=== PATIENT | male | born 1965 | race Caucasian/White ===

== ENCOUNTER 2018-09-26 17:55 | Emergency (ER) | payer OTHER ==
[2018-09-26] MEDS ORDERED: ASPIRIN 81 MG TABLET, CHEWABLE PO ONE (18:32)
--- NOTE | 2018-09-26 18:35 | ER Document Report ---
ED Medical Screen (RME) - General Chief Complaint: Chest Pain Stated Complaint: BACK AND CHEST PAIN/DIARRHEA Time Seen by Provider: 09/26/18 18:28 Mode of Arrival: Ambulatory Information source: Patient Notes: 53-year-old male presented to ED for complaint of left chest and back pain. He states he has been coughing since Saturday. He states he has a history of high cholesterol and is supposed to be taking prediabetic medicine but is not taking them. He does smoke a pack a day. He states his mother is in the hospital on a ventilator with a history of C. difficile and MRSA. He states he just got his mother in the hospital now is come in to get examined himself. Patient is alert and oriented respirations regular and unlabored speaking in full sentences. Patient states he has diarrhea has had 3 or 4 stools today and his stools smell exactly like his mother stools. He states he has not been on any antibiotics recently. I have greeted and performed a rapid initial assessment of this patient. A comprehensive ED assessment and evaluation of the patient, analysis of test results and completion of medical decision making process will be conducted by an additional ED providers. Dictation of this chart was performed using voice recognition software; therefore, there may be some unintended grammatical errors. TRAVEL OUTSIDE OF THE [place] IN LAST 30 DAYS: No - Related Data Allergies/Adverse Reactions: Penicillins Allergy (Verified 09/26/18 17:56) Past Medical History - Social History Chew tobacco use (# tins/day): No Frequency of alcohol use: Occasional Drug Abuse: None - Past Medical History Cardiac Medical History: Reports: Hx Hypercholesterolemia Pulmonary Medical History: Denies: Hx Tuberculosis Endocrine Medical History: Reports: Hx Diabetes Mellitus Type 2 Renal/ Medical History: Denies: Hx Peritoneal Dialysis Psychiatric Medical History: Reports: Hx Anxiety, Hx Depression Past Surgical History: Reports: Hx Herniorrhaphy, Hx Inguinal Hernia - left, Hx Tonsillectomy. Denies: Hx Pacemaker - Immunizations Immunizations up to date: No Hx Diphtheria, Pertussis, Tetanus Vaccination: No Physical Exam - Vital signs Vitals: Temp Pulse Resp BP Pulse Ox 98.2 F 73 16 135/76 H 97 09/26/18 18:00 09/26/18 18:00 09/26/18 18:00 09/26/18 18:00 09/26/18 18:00 Course - Vital Signs Vital signs: Temp Pulse Resp BP Pulse Ox 98.2 F 73 16 135/76 H 97 09/26/18 18:00 09/26/18 18:00 09/26/18 18:00 09/26/18 18:00 09/26/18 18:00
[2018-09-26 18:48] LABS: ABSOLUTE BASOPHILS # (AUTO) 0.1 10^3/uL (0.0-0.2); ABSOLUTE EOSINOPHILS # (AUTO) 0.2 10^3/uL (0.0-0.6); ABSOLUTE LYMPHOCYTES (AUTO) 2.3 10^3/uL (0.5-4.7); ABSOLUTE MONOCYTES (AUTO) 0.6 10^3/uL (0.1-1.4); ABSOLUTE NEUT (AUTO) 4.5 10^3/uL (1.7-8.2); BASOPHILS % (AUTO) 0.7 % (0-2); EOSINOPHILS % (AUTO) 2.9 % (0-6); HEMATOCRIT 44.5 % (37.9-51.0); LYMPHOCYTES % (AUTO) 30.1 % (13-45); MEAN CORPUSCULAR HEMOGLOBIN 27.8 pg (27.0-33.4); MEAN CORPUSCULAR HGB CONC 33.8 g/dL (32.0-36.0); MEAN CORPUSCULAR VOLUME 82 fl (80-97); MONOCYTES % (AUTO) 7.4 % (3-13); PLATELET COUNT 252 10^3/uL (150-450); RED BLOOD COUNT 5.41 10^6/uL (4.35-5.55); RED CELL DISTRIBUTION WIDTH 12.6 % (11.5-14.0); SEGMENTED NEUTROPHILS % (AUTO) 58.9 % (42-78); TOTAL CELLS COUNTED % (AUTO) 100 %; WHITE BLOOD COUNT 7.7 10^3/uL (4.0-10.5)
--- NOTE | 2018-09-26 18:53 | RADIOLOGY REPORT (SQ) ---
EXAM DESCRIPTION: CHEST 2 VIEWS COMPLETED DATE/TIME: 09/26/2018 6:40 pm REASON FOR STUDY: CHEST PAIN WORSE LEFT AND BETWEEN SHOULDER BLADES COMPARISON: 06/16/2015 EXAM PARAMETERS: NUMBER OF VIEWS: two views TECHNIQUE: Digital Frontal and Lateral radiographic views of the chest acquired. RADIATION DOSE: NA LIMITATIONS: none FINDINGS: LUNGS AND PLEURA: No opacities, masses or pneumothorax. No pleural effusion. MEDIASTINUM AND HILAR STRUCTURES: No masses or contour abnormalities. HEART AND VASCULAR STRUCTURES: Heart normal size. No evidence for failure. BONES: No acute findings. HARDWARE: None in the chest. OTHER: No other significant finding. IMPRESSION: NO ACUTE RADIOGRAPHIC FINDING IN THE CHEST. TECHNICAL DOCUMENTATION: JOB ID: [id number] [employer]- All Rights Reserved Reading location - IP/workstation name: [email or web address]
[2018-09-26 19:07] LABS: ALANINE AMINOTRANSFERASE 26 U/L (21-72); ALBUMIN 4.1 g/dL (3.5-5.0); ALKALINE PHOSPHATASE 46 U/L (38-126); ANION GAP 10 (5-19); ASPARTATE AMINO TRANSFERASE 17 U/L (17-59); BILIRUBIN,DIRECT 0.3 mg/dL (0.0-0.4); BILIRUBIN,TOTAL 0.5 mg/dL (0.2-1.3); BLOOD UREA NITROGEN 13 mg/dL (7-20); CALCIUM 9.8 mg/dL (8.4-10.2); CARBON DIOXIDE 27 mmol/L (22-30); CHLORIDE 101 mmol/L (98-107); GLUCOSE 207 mg/dL (75-110); LIPASE 50.6 U/L (23-300); POTASSIUM 4.1 mmol/L (3.6-5.0); SODIUM 138.1 mmol/L (137-145); TOTAL PROTEIN 6.8 g/dL (6.3-8.2)
[2018-09-26 19:19] LABS: CREATINE KINASE MB 0.87 ng/mL (<4.55); TROPONIN I < 0.012 ng/mL
--- NOTE | 2018-09-26 20:10 | ER Document Report ---
ED General - General Chief Complaint: Chest Pain Stated Complaint: BACK AND CHEST PAIN/DIARRHEA Time Seen by Provider: 09/26/18 18:28 Primary Care Provider: DEMETRIUS ESPINAL [Primary Care Provider] - Follow up in 3-5 days Mode of Arrival: Ambulatory Notes: Patient is a 53-year-old male current everyday smoker, history of hypertension, presents complaining of approximately 1 week of left-sided chest discomfort as well as left upper back pain and left shoulder pain. Patient states that the pain is a stabbing, constant, aching discomfort that is moderate in intensity. States the pain is worsened by movement of the left shoulder or coughing. He has not tried anything for relief. States that his symptoms started after having a persistent cough for several weeks. Denies any pleuritic pain, shortness of breath, hemoptysis, or syncope. Denies a history of similar symptoms in the past. Has not seen his general physician regarding today's concerns. Denies fever or constitutional symptoms. TRAVEL OUTSIDE OF THE [place] IN LAST 30 DAYS: No - Related Data Allergies/Adverse Reactions: Penicillins Allergy (Verified 09/26/18 17:56) Past Medical History - General Information source: Patient - Social History Smoking Status: Current Every Day Smoker Chew tobacco use (# tins/day): No Frequency of alcohol use: Occasional Drug Abuse: None Family History: Reviewed & Not Pertinent Patient has suicidal ideation: No Patient has homicidal ideation: No - Past Medical History Cardiac Medical History: Reports: Hx Hypercholesterolemia Pulmonary Medical History: Denies: Hx Tuberculosis Endocrine Medical History: Reports: Hx Diabetes Mellitus Type 2 Renal/ Medical History: Denies: Hx Peritoneal Dialysis Psychiatric Medical History: Reports: Hx Anxiety, Hx Depression Past Surgical History: Reports: Hx Herniorrhaphy, Hx Inguinal Hernia - left, Hx Tonsillectomy. Denies: Hx Pacemaker - Immunizations Immunizations up to date: No Hx Diphtheria, Pertussis, Tetanus Vaccination: No Review of Systems - Review of Systems Notes: Constitutional: Negative for fever. HENT: Negative for sore throat. Eyes: Negative for visual changes. Cardiovascular: Negative for palpitations Respiratory: Negative for shortness of breath. Gastrointestinal: Negative for abdominal pain, vomiting or diarrhea. Genitourinary: Negative for dysuria. Musculoskeletal: Positive for left upper back pain and chest wall pain Skin: Negative for rash. Neurological: Negative for headaches, weakness or numbness. 10 point ROS negative except as marked above and in HPI. Physical Exam - Vital signs Vitals: Temp Pulse Resp BP Pulse Ox 98.2 F 73 16 135/76 H 97 09/26/18 18:00 09/26/18 18:00 09/26/18 18:00 09/26/18 18:00 09/26/18 18:00 Interpretation: Normal Notes: PHYSICAL EXAMINATION: GENERAL: Well-appearing, well-nourished and in no acute distress. HEAD: Atraumatic, normocephalic. EYES: Pupils equal round and reactive to light, extraocular movements intact, sclera anicteric, conjunctiva are normal. ENT: nares patent, oropharynx clear without exudates. Moist mucous membranes. NECK: Normal range of motion, supple without lymphadenopathy LUNGS: Breath sounds clear to auscultation bilaterally and equal. No wheezes rales or rhonchi. HEART: Regular rate and rhythm without murmurs ABDOMEN: Soft, nontender, normoactive bowel sounds. No guarding, no rebound. No masses appreciated. EXTREMITIES: Normal range of motion, pain over the left chest with range of motion of the left shoulder, no pitting or edema. No cyanosis. Back: There is pain on palpation of the periscapular region along the left upper back NEUROLOGICAL: No focal neurological deficits. Moves all extremities spontaneously and on command. PSYCH: Normal mood, normal affect. SKIN: Warm, Dry, normal turgor, no rashes or lesions noted. Course - Re-evaluation Re-evalutation: 09/26/18 20:11 Patient presents with a clinical history and exam most consistent with an acute viral bronchitis. Patient is overall well in appearance without tachypnea, hypoxemia, tachycardia, or difficulty with ambulation. Breath sounds are clear bilaterally. No fever. Patient's main complaint is of pain in his left upper b ack in the subscapular region as well as over the left chest and left shoulder worsened when he moves the shoulder or coughs. This is very reproducible on exam, appears to be musculoskeletal in origin. Chest x-ray, labs including troponin, as well as EKG are all unremarkable. I do not suspect the patient's chest discomfort is ACS, pulmonary embolus, dissection or any alternative life-threatening concern as the duration of the symptoms has been over 1 week, is reproducible on exam as well as with range of motion, and he has an otherwise very reassuring work-up. At this time will discharge with return precautions and follow-up recommendations. Verbal discharge instructions given a the bed side and opportunity for questions given. Medication warnings reviewed. Patient is in agreement with this plan and has verbalized understanding of return precautions and the need for primary care follow-up in the next 24-72 hours. - Vital Signs Vital signs: Temp Pulse Resp BP Pulse Ox 97.8 F 56 L 16 124/85 98 09/26/18 20:30 09/26/18 20:30 09/26/18 20:30 09/26/18 20:30 09/26/18 20:30 - Laboratory Result Diagrams: 09/26/18 18:29 09/26/18 18:29 Laboratory results interpreted by me: 09/26/18 18:29 Glucose 207 H - Diagnostic Test Radiology reviewed: Image reviewed, Reports reviewed Radiology results interpreted by me: 09/26/18 20:12 Chest x-ray: No acute infiltrate or pneumothorax - EKG Interpretation by Me Additional EKG results interpreted by me: 09/26/18 20:13 Sinus rhythm, rate 69. No ST elevations or depressions. QTC is 403. Discharge - Discharge Clinical Impression: Upper back pain on left side, Chest wall pain, Cough Condition: Good Disposition: HOME, SELF-CARE Additional Instructions: You were seen for symptoms most consistent with bronchitis. This can take up to 12 weeks to fully resolve. This is generally due to a viral infection. The pain in your upper back and chest wall are likely due to muscle inflammation from coughing. As we discussed please avoid smoking. Please follow-up with your primary doctor in the next 2-3 days. Return if you develop worsening cough, v omiting, fever >100.4, pass out, begin coughing blood, or have any other symptoms that are concerning to you. Please use the medications prescribed today as directed. For your pain take naproxen 500 mg twice daily and Tylenol 1000 mg every 6 hours. Apply a heat pad to the affected area 20 minutes every 2 hours while awake. Continue to gently range the shoulder region to avoid stiffening. You m ay also apply topical lidocaine cream which can be purchased directly over the counter. Prescriptions: Naproxen 500 mg PO BID PRN #14 tablet PRN Reason: Referrals: [facility] [Primary [facility]] - Follow up in 3-5 days
[2018-09-26 20:42] VITALS: BP 124/85
--- NOTE | 2018-09-27 08:44 | EKG REPORT ---
SEVERITY:- NORMAL ECG - SINUS RHYTHM PROBABLE LEFT ATRIAL ABNORMALITY : Confirmed by: Amarjit Christianson MD 27-Sep-2018 08:39:35
== END 2018-09-26 20:35 | disposition home or self-care (01) ==
LOC: ER 17:55
DX: M54.6 Pain in thoracic spine (principal); R07.89 Other chest pain; R05 Cough; R19.7 Diarrhea, unspecified; F17.200 Nicotine dependence, unspecified, uncomplicated; I10 Essential (primary) hypertension; Z88.0 Allergy status to penicillin; E78.00 Pure hypercholesterolemia, unspecified
CPT/HCPCS: 36415; 71046; 80053; 82272; 82553; 83690; 84484; 85025; 87045; 87205; 87493; 89055; 93005; 93010; 99284